=== PATIENT | female | born 1955 | race Caucasian/White ===

== ENCOUNTER → 2019-11-07 10:27 | Outpatient (BNVA) | payer OTHER, SELFPAY | PROVIDERS: Family Provider Nurse Practitioner Family; PCP Nurse Practitioner Family; Visit Provider Nurse Practitioner Family | DX: J02.9 Acute pharyngitis, unspecified (principal); M06.9 Rheumatoid arthritis, unspecified; J32.9 Chronic sinusitis, unspecified; E03.9 Hypothyroidism, unspecified; I10 Essential (primary) hypertension | CPT/HCPCS: 87071; 87880 ==

== ENCOUNTER → 2020-11-01 11:56 | Outpatient (BNVA) | payer BC, SELFPAY | PROVIDERS: Family Provider Nurse Practitioner Family; PCP Nurse Practitioner Family; Visit Provider Nurse Practitioner Family | DX: M25.50 Pain in unspecified joint (principal); W57.XXXA Bitten or stung by nonvenomous insect and other nonvenomous arthropods, initial encounter; R53.83 Other fatigue; L03.90 Cellulitis, unspecified; S80.862A Insect bite (nonvenomous), left lower leg, initial encounter; I10 Essential (primary) hypertension | CPT/HCPCS: 85025; 85651; 86618; 86666; 86757 ==

== ENCOUNTER 2021-01-01 14:11 | Outpatient (CLI) | payer BC, SELFPAY ==
--- NOTE | 2021-01-01 14:30 | USCV_ITS ---
Delfina Haskins Age: 65 Gender: F : 1955 Exam Date: 01/01/2021 14:55 Ordering Phys: Messi Enriquez MD Technologist: Cheryl Elliott Exam Location: [facility] [place] Indication: LLE PAIN AND SWELLING HISTORY: Lower extremity pain. Lower extremity swelling. PROCEDURES: Venous duplex imaging was performed in only the left lower extremity. The following venous structures were evaluated: common femoral vein, profunda vein, proximal portion of the greater saphenous vein, superficial femoral vein, and the popliteal vein. In addition, the posterior tibial and peroneal trunk were evaluated. Serial compression, augmentation maneuvers, and spectral Doppler flow evaluation were performed. FINDINGS: Normal 2-D Doppler and augmentation and compressibility throughout the lower extremity venous structures. Additional imaging through the proximal calf veins also reveals no thrombus. Limited evaluation of the greater saphenous vein is patent with no thrombus. Left LSV compressible 2.8cm from the junction with femoral vein, non-compressible LSVat prox-mid. CONCLUSIONS No DVT left lower extremity. Acute LSV thrombus distal to the common femoral vein junction. Dr. Kady Delaney DO (Electronically Signed) Final Date: 01 January 2021 15:06 S
== END 2021-01-01 14:12 | disposition home or self-care (01) ==
LOC: RAD 14:20
PROVIDERS: PCP Family Medicine; Visit Provider Family Medicine
DX: M79.89 Other specified soft tissue disorders (principal); M79.605 Pain in left leg
CPT/HCPCS: 93971

== ENCOUNTER 2021-08-19 15:42 | Emergency (ER) | payer MEDICARE, SELFPAY ==
[2021-08-19 15:59] VITALS: BP 165/96; PULSE 74; RESP 16; TEMP 36.9; O2SAT 97; BMI 35.3
--- NOTE | 2021-08-19 17:07 | ED_ITS ---
HPI - General Adult General: Chief complaint: Ear Stated complaint: right side jaw and throat pain Time Seen by Provider: 08/19/21 17:00 Source: patient Mode of arrival: ambulatory Limitations: no limitations History of Present Illness: 66-year-old female who presents to the emergency room with complaints of right ear pain. She also notes little droop on the corner of her mouth and at times when she is drinking liquids or even saliva will seem to drill out the corner of the mouth on the right. She is not noticed any other symptoms. No change in vision no difficulty with gait or coordination. She has no chest pain. She has a history of hypertension and currently is taking lisinopril and it was recently increased. Onset (ago): day(s) Location: head and face Radiation: non-radiation Severity: mild Pain Consistency: intermittent Relieving factors: none Exacerbating factors: none Associated symptoms: Deny chest pain, confusion, cough, diaphoresis, decreased appetite, dyspnea, fevers/chills, headache(s), malaise, nausea, rash, palpitations, seizures, short of breath, syncope, vomiting or weakness Treatments prior to arrival: none Review of Systems Const: Denies: malaise or diaphoresis ENMT: Denies: throat pain, ear or mastoid pain, nasal discharge or nasal congestion Card: Denies: chest pain, palpitations or syncope Resp: Denies: dyspnea GI: Denies: nausea or vomiting : Denies: flank pain, difficulty voiding, dysuria, urinary frequency or urinary urgency Skin/Breast: Denies: rash Neuro: Denies: headache(s) or confusion [facility] ED PFSH: Medical History HTN (hypertension) Hypothyroidism Rheumatoid arthritis Social History Smoking and tobacco status: never smoked Physical Exam Const: COMMON NORMALS: no acute distress GENERAL APPEARANCE: cooperative and comfortable ORIENTATION/CONSCIOUSNESS: Yes awake, Yes oriented to person, Yes oriented to place and Yes oriented to time HENMT: COMMON NORMALS: normocephalic, atraumatic, hearing grossly normal bilaterally, external ears normal, EAC's normal, TM's normal bilaterally, Normal nasal mucous membranes and turbinates present, moist oral mucous membranes and oropharynx normal HEAD & SCALP: normocephalic and atraumatic NOSE: Normal nasal mucous membranes and turbinates present EXTERNAL EAR: Yes external ears normal EXTERNAL AUDITORY CANAL: EAC's normal TYMPANIC MEMBRANE: TM's normal bilaterally Eye: COMMON NORMALS: Equal, round and reactive pupils present, EOMs intact bilaterally, conjunctivae normal and no scleral icterus CONJUNCTIVA: Yes conjunctivae normal PUPIL: Yes Equal, round and reactive pupils present Neck/C-Spine: COMMON NORMALS: full ROM, no lymphadenopathy, supple and no JVD Resp: COMMON NORMALS: normal respiratory effort, No retractions, No use of accessory muscles and clear to auscultation bilaterally AUSCULTATION: clear to auscultation bilaterally Cardio: COMMON NORMALS: no JVD, regular rate, regular rhythm and No murmurs present (Cardio) RATE: regular rate RHYTHM: regular rhythm Extremity: COMMON NORMALS: normal to inspection, capillary refill normal, no clubbing, cyanosis or edema, no calf tenderness and no pedal edema Neuro: SENSORIUM/ORIENTATION: Yes oriented to person, Yes oriented to place and Yes oriented to time COORDINATION/BALANCE: [id number] test normal COORDINATION: [id number] test normal Skin: COMMON NORMALS: no rashes or lesions noted GENERAL SKIN EXAM: no rashes or lesions noted Course Vital Signs: Vital signs: Vital Signs Temperature 98.4 F 08/19/21 15:59 Pulse Rate 74 08/19/21 15:59 Respiratory Rate 16 08/19/21 15:59 Blood Pressure 165/96 08/19/21 15:59 Pulse Oximetry 97 08/19/21 15:59 [facility] - General Adult Medical Decision Making Patient symptom presentation is that of initial ear pain and now very slight lower facial droop only involving the corner of the mouth. She has noticed a little dribbling there. She not had any watering from the eye and there is no droop at the eye with the upper portion of the face. Her blood pressure has been elevated showed me several readings from the last couple of days at home that were markedly elevated some approaching 200 on the systolic. She is elevated here as well. She has no other deficits. 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 Going to start her on prednisone. Additionally with her blood pressure elevated we are going add amlodipine. Patient states there are outpatient work-up testing scheduled I would recommend she complete those as planned. Return if she has further problems. Medical Records I reviewed the patient's medical records. Lab Data I reviewed the patient's lab results. Discharge Plan Discharge Patient Disposition: Home Clinical Impression: Mcclain's palsy, HTN (hypertension) Condition: Stable Prescriptions: New prednisone 20 mg tablet 20 mg PO TID Qty: 15 0RF amlodipine 5 mg tablet 5 mg PO DAILY Qty: 30 0RF No Action meclizine 25 mg tablet 25 mg PO BID Qty: 20 0RF lisinopril 10 mg tablet 10 mg PO .COMPLEX Qty: 90 1RF Rx Instructions: Take 2 tabs in am and 1 tab in evening levothyroxine 112 mcg capsule 112 mcg PO DAILY Qty: 90 1RF Discharge Orders: Discharge ED (Routine); Ordered 08/19/21 Ordered By: Hu Ochoa Referrals: Messi Enriquez MD [Primary Care Provider] - Discharge Diet: Usual diet Discharge Activity: Increase activity as tolerated Patient Instructions: Opioid Safety Activity Restrictions/Additional Instructions: Check your primary care doctor within the next 5 to 7 days to reevaluate your blood pressure Coding Level of Care Code ED Psychologist Private [facility] for [facility] Fwd NIH stroke score NIHSS Level Of Consciousness - 1a: 0 Level Of Consciousness Questions - 1b: Both Correct Level Of Consciousness Commands - 1c: Both Correct Best Gaze - 2: Normal Visual Bower - 3: No Visual Loss Facial Palsy - 4: Minor Paralysis Motor Arm Right - 5: No Drift Motor Arm Left - 5: No Drift Motor Leg Right - 6: No Drift Motor Leg Left - 6: No Drift Limb Ataxia - 7: Absent Sensory - 8: Normal Best Language - 9: No Aphasia Dysarthia - 10: Normal Extinction And Inattention - 11: 0 Score Total Score: 1
== END 2021-08-19 17:29 | disposition home or self-care (01) ==
PROVIDERS: Emergency Provider Family Medicine; PCP Family Medicine
DX: G51.0 Bell's palsy (principal); I10 Essential (primary) hypertension; E03.9 Hypothyroidism, unspecified
CPT/HCPCS: 99281

== ENCOUNTER 2022-01-28 08:28 | Outpatient (CLI) | payer MEDICARE, SELFPAY ==
--- NOTE | 2022-01-28 09:30 | CT_ITS ---
WS: [id number] CT ABDOMEN WITH CONTRAST HISTORY: R16.0 - Hepatomegaly, not elsewhere classified chronic RIGHT upper quadrant pain. Contiguous 2 phase 5 mm axial imaging performed through the abdomen. Oral contrast has been provided. Coronal and sagittal reformats are submitted. All CT scans at [facility] use at least one of these dose optimization techniques: automated exposure control; mA and/or kV adjustment per patient size (includes targeted exams where dose is matched to clinical indication); or iterative reconstruct ion. CONTRAST: Omnipaque 350; 95 mL IV. DLP: 1328.16 mGy.cm COMPARISON: None available. Lower thorax: Focal scar or atelectasis LEFT lung base. Normal size heart. Small hiatal hernia. Liver: Liver is top normal size. No mass or bile duct dilatation. Normal portal vein. Gallbladder: Not identified. Possible post surgical removal. Patient did not provide a history of a c holecystectomy. Pancreas: Normal. Spleen: Normal. Adrenals: Normal. Right kidney: Normal. Left kidney: Normal. Aorta: 2 GI tract: As visualized are normal. Normal distention of the stomach. No small bowel obstruction. No adenopathy or free fluid. Abdominal wall: No hernia. Visualized osseous structures: L4 anterolisthesis by [address]/CT abdomen w con* [id number] IMPRESSION: 1. Normal size liver. No mass or bile duct dilatation. 2. Gallbladder not identified. Patient did not provide a history of a prior ch olecystectomy. Suspect surgical removal. 3. No adenopathy or ascites.
[2022-01-28] MEDS: barium sulfate 450 mL Oral Susp PO (09:48)
[2022-01-28 09:49] LABS: Blood Urea Nitrogen 13 mg/dL (8-23)
[2022-01-28] MEDS: iohexol 350 mg/mL 100 mL Btl IV (09:56)
== END 2022-01-28 08:29 | disposition home or self-care (01) ==
PROVIDERS: Radiology Neuroradiology; PCP Family Medicine; Visit Provider Nurse Practitioner Family
DX: K52.9 Noninfective gastroenteritis and colitis, unspecified (principal); K57.92 Diverticulitis of intestine, part unspecified, without perforation or abscess without bleeding; R16.0 Hepatomegaly, not elsewhere classified
CPT/HCPCS: 74160; 82565; 84520

== ENCOUNTER 2022-03-19 16:13 | Outpatient (CLI) | payer MEDICARE, SELFPAY | END 2022-03-19 16:14 | disposition home or self-care (01) | PROVIDERS: PCP Family Medicine; Visit Provider Nurse Practitioner Family | DX: E03.9 Hypothyroidism, unspecified (principal); M06.9 Rheumatoid arthritis, unspecified; I10 Essential (primary) hypertension | CPT/HCPCS: 36415; 99203 ==

== ENCOUNTER 2022-03-26 08:03 | Outpatient (CLI) | payer MEDICARE, SELFPAY ==
--- NOTE | 2022-03-26 08:00 | FL_ITS ---
WS: [id number] Modified barium swallow, 03/26/2022 Clinical Data: Difficulty swallowing Comparison: None. Fluoroscopy time: 2min [id number] # of spot films: 1 Findings: The patient showed normal oral propulsion of ingested material. There is minimal residue in the hypop harynx which didn't clear. There is no penetration or aspiration. There is a functional pharynx. The variant tablet held normally from the oral cavity through the pharynx into the esophagus and stomach. FL/FL barium swallow modifd [id number] Impression: Normal modified barium swallow.
== END 2022-03-26 08:04 | disposition home or self-care (01) ==
LOC: RAD 08:04
PROVIDERS: Family Provider Nurse Practitioner Family; PCP Family Medicine; Visit Provider Surgery
DX: R13.10 Dysphagia, unspecified (principal)
CPT/HCPCS: 74230; 92611

== ENCOUNTER 2022-04-06 06:35 | Day surgery (SDC) | payer MEDICARE, SELFPAY ==
[2022-04-02 12:21] VITALS: BMI 37.3
--- NOTE | 2022-04-06 05:55 | W.PM.OPSUD ---
Surgery/Procedure H&P Update DATE OF PROCEDURE: April 06, 2022 DATE H&P PERFORMED: 03/19/22 H&P UPDATE INFORMATION: I have reviewed H&P completed within last 30 days, I have examined patient prior to procedure and Changes to prior documentation as noted here (Normal modified barium swallow.) PRIMARY INDICATION FOR PROCEDURE: The same PLANNED PROCEDURE: Operation Date: 04/06/22 08:00 Proposed Procedures p EGD 50864,R13.10(Not Applicable) - Agus Driscoll MD
[2022-04-06 06:51] VITALS: BP 186/97; PULSE 75; RESP 16; TEMP 36.1; O2SAT 98
[2022-04-06] MEDS: sodium chloride 0.9% 1,000 ML 30 ML IV (07:11)
--- NOTE | 2022-04-06 08:02 | P.ANESASSM_ITS ---
Pre-Anesthetic Assessment Height/Weight: Height 1.5 m Weight 83.915 kg Temp Pulse Resp BP Pulse Ox O2 Del Method 97 F L 75 16 186/97 98 04/06/22 06:51 04/06/22 06:51 04/06/22 06:51 04/06/22 06:51 04/06/22 06:51 04/06/22 06:51 Preop Diagnosis: Dysphagia Operation Date: 04/06/22 08:00 Proposed Procedures p EGD 32593,R13.10(Not Applicable) - Agus Driscoll MD Familial anesthetic complications: PONV Was Beta Bran taken within 24 hours: N/A Was Clonidine taken within 24 hours: N/A Last intake: Intake Last Liquid Date 04/05/22 Last Liquid Time 20:00 Last Solid Date 04/05/22 Last Solid Time 18:30 Social No alcohol and No tobacco Exam alert, oriented x 3 and clear to auscultation bilaterally Airway Submandibular: within normal limits Cervical ROM: within normal limits Mallampati: Class II Dentition: full History/ROS No significant history except as noted Pulmonary None reported CV/HEM Hypertension None reported Hepatic None reported GI dysphagia Metabolic Thyroid Disease [facility] [place] None reported Neuropsych None reported Anesthetic Plan ASA status: 2 Anesthesia: Anesthesia Evaluation and MAC Risk of > 500 ml blood loss (7ml/kg in children): No Medications/Allergies Home Medications Medication Instructions Recorded Confirmed Last Taken Type metoclopramide HCl 10 mg tablet 10 mg PO TID PRN nausea #20 tabs 01/01/22 04/02/22 04/02/22 Rx (Reglan) losartan 100 mg tablet 100 mg PO DAILY #30 tabs 03/05/22 04/06/22 04/05/22 Rx levothyroxine 125 mcg tablet 125 mcg PO DAILY 04/02/22 04/06/22 04/06/22 History Allergies Allergy/AdvReac Type Severity Reaction Status Date / Time acetaminophen [From Percocet] Allergy Unknown Verified 04/02/22 12:16 amoxicillin [From Augmentin] Allergy Unknown Verified 04/02/22 12:16 clavulanic acid Allergy Unknown Verified 04/02/22 12:16 [From Augmentin] oxycodone [From Percocet] Allergy Unknown Verified 04/02/22 12:16 Penicillins Allergy Unknown Verified 04/02/22 12:16 Current Medications Generic Name Dose Route Start Last Admin Trade Name Freq PRN Reason Stop Dose Admin Sodium Chloride 1,000 mls @ 30 mls/hr 04/06/22 06:45 04/06/22 07:11 Sodium Chloride 0.9% IV 04/07/22 06:44 30 mls/hr .Q24H SARAH Administration PFSH Anesthesia Medical History History of breast cancer Diagnosed in 2000. HTN (hypertension) Hypothyroidism Rheumatoid arthritis Surgical History H/O right mastectomy History of section x 2 History of cholecystectomy S/P removal of thyroid nodule Non-cancerous Social History Smoking and tobacco status: never smoked Data Anesthesia Cardiac Studies: No Data to Display
[2022-04-06 08:30] VITALS: BP 126/81; PULSE 94; RESP 16; TEMP 36.1; O2SAT 93
[2022-04-06 08:40] VITALS: BP 104/62; PULSE 79; RESP 16; O2SAT 95
--- NOTE | 2022-04-06 09:17 | ANE.PACU2 ---
Inpatient post-anesthesia follow up: Airway intact: Yes Vital signs: Temperature 97.0 F Pulse Rate 79 Respiratory Rate 16 Blood Pressure 104/62 Pulse Oximetry 95 Oxygen Delivery Me thod Room Air Oxygen Flow Rate Fraction of Inspir ed Oxygen Hydration adequate: Yes Nausea and vomiting: No Pain level: 0 Mental status: Baseline
== END 2022-04-06 09:04 | disposition home or self-care (01) ==
PROVIDERS: Family Provider Nurse Practitioner Family; PCP Family Medicine; Visit Provider Surgery
PROC: 0DJ08ZZ Inspection of Upper Intestinal Tract, Via Natural or Artificial Opening Endoscopic (ICD-10-PCS; CPT 43235; principal; 2022-04-06 08:00)
DX: R13.10 Dysphagia, unspecified (principal); I85.00 Esophageal varices without bleeding; K21.00 Gastro-esophageal reflux disease with esophagitis, without bleeding; K44.9 Diaphragmatic hernia without obstruction or gangrene; K29.80 Duodenitis without bleeding; K29.70 Gastritis, unspecified, without bleeding; B96.81 Helicobacter pylori [H. pylori] as the cause of diseases classified elsewhere; I10 Essential (primary) hypertension; Z85.3 Personal history of malignant neoplasm of breast; E03.9 Hypothyroidism, unspecified; M06.9 Rheumatoid arthritis, unspecified
CPT/HCPCS: 43239; 88305; 88342; J2704; J7030

== ENCOUNTER → 2022-04-15 07:46 | Outpatient (BNVA) | payer MEDICARE, SELFPAY | PROVIDERS: Family Provider Nurse Practitioner Family; PCP Nurse Practitioner Family; Visit Provider Surgery | DX: Z09 Encounter for follow-up examination after completed treatment for conditions other than malignant neoplasm (principal); K20.90 Esophagitis, unspecified without bleeding; I85.00 Esophageal varices without bleeding; K29.90 Gastroduodenitis, unspecified, without bleeding | CPT/HCPCS: 99213 ==

== ENCOUNTER 2022-04-21 07:36 | Outpatient (CLI) | payer MEDICARE, SELFPAY ==
--- NOTE | 2022-04-21 | ECG_ITS ---
[facility] Test Date: 2022-04-21 Pat Name: Delfina Haskins Department: Room: Gender: Female Disability Representative: Omayra Benavides : 1955 Requested By: Messi Pang Order Number: [id number] MD: Heath iMller M.D. Interpretive Statements NAME OF STUDY: LEXISCAN SESTAMIBI STRESS TEST INDICATION: [Chest Pain, ] Procedure: At the baseline, the blood pressure was 146/82 mmHg with a heart rate of 77 bpm. The electrocardiogram showed normal sinus rhythm, normal axis with normal ST and T's and occasional PVCs. The Lexiscan was infused over a period of 20 seconds. A total of 0.4 mg of Lexiscan was infused. The stress phase was continued for a total of 5 minutes. Heart rate was at the end of stress phase was 86 bpm and a blood pressure of 143/93 mmHg. The EKG at the peak infusion revealed normal sinus rhythm with no significant ST-T wave changes. Sestamibi was injected 20 seconds after the Lexiscan infusion. Blood pressure at the end of recovery phase was 143/92 mmHg with a heart rate of 86 bpm. Conclusion: 1. Normal EKG response to Lexiscan infusion 2. No Lexiscan induced chest pain or cardiac arrhythmia. 3. Normal blood pressure and heart rate response. 4. Sestamibi/sestamibi perfusion scan pending; see separate report. Electronically Signed On 05-10-2022 13:20:57 CORRECTIONAL MAINTENANCE TECHNICIAN by Heath Miller M.D. [id number]
--- NOTE | 2022-04-21 07:59 | NMCV_ITS ---
NM kevin perf SPECT r/s* [id number] Delfina Haskins Age: 67 Gender: F : 1955 Exam Date: 04/21/2022 08:54 Ordering Phys: Messi Enriquez MD Technologist: MICHAEL Saenz Exam Location: [facility] Indications: CHEST PAIN STRESS TEST Please see separate stress test report in [employer] for full findings IMAGE PROTOCOL Rest/Stress 1 Lexiscan Day Radiopharmaceutical Dose (mCi) Administration Site Administered by Rest: Tc-99m 10.7 IV MICHAEL Garcia Sestamibi Stress:Tc-99m 32.4 IV MICHAEL Garcia Sestamibi Rest: 21-Apr-2022 60 Discovery 630 Stress: 21-Apr-2022 30 Discovery 630 0.4mg Lexiscan. Images obtained in supine and prone position. SPECT RESULTS Technical Quality: Excellent Raw Data Analysis: Normal Image Corrections: No attenuation or motion correction applied Summed Stress Score: 9 Summed Rest Score: 0 Summed Difference Score: 9 PERFUSION FINDINGS There is a large in size, reversible perfusion defect noted in inferolateral and anterolateral meraz. This is consistent with large area of ischemia in the left circumflex artery territory. FUNCTIONAL RESULTS (calculated via Gated SPECT) Stress Image LV EF (%): 73 Stress EDV (mL):97 TID: 0.92 Stress ESV (mL):26 FUNCTIONAL FINDINGS: There is normal left ventricular systolic function. IMPRESSIONS 1. Abnormal myocardial perfusion imaging with large area of ischemia noted in left circumflex artery territory. 2. LV systolic function is normal Heath Miller MD (Electronically Signed) Final Date: 21 April 2022 10:44 S
[2022-04-21] MEDS: regadenoson 0.4 Mg/5 ml Syringe IVP (09:25)
[2022-04-21] MEDS: ondansetron 2 mg/ML SDV 2 mL 4 MG IVP (09:28)
[2022-04-21 09:45] VITALS: BP 143/92; PULSE 83
== END 2022-04-21 07:37 | disposition home or self-care (01) ==
PROVIDERS: PCP Family Medicine; Visit Provider Family Medicine
DX: R07.9 Chest pain, unspecified (principal); R06.02 Shortness of breath
CPT/HCPCS: 36415; 78452; 93017; 96374; 96375; A9500; J2405; J2785

== ENCOUNTER → 2022-04-27 13:00 | Outpatient (BNVA) | payer MEDICARE, SELFPAY | PROVIDERS: PCP Family Medicine; Visit Provider Internal Medicine | DX: R07.9 Chest pain, unspecified (principal); R94.39 Abnormal result of other cardiovascular function study; M06.9 Rheumatoid arthritis, unspecified; I10 Essential (primary) hypertension | CPT/HCPCS: 99204 ==

== ENCOUNTER 2022-04-30 05:35 | Outpatient (CLI) | payer MEDICARE, SELFPAY ==
[2022-04-30] VITALS (16 sets, daily range): BP systolic 131–156; BP diastolic 79–100; PULSE 81–91; RESP 13–18; TEMP 36.8; O2SAT 92–97; BMI 38.7
--- NOTE | 2022-04-30 06:00 | XACV_ITS ---
Exam Room: 2 Ht: 150 cm Wt: 87 kg BSA: 1.95 m2 Gender: Female : 1955 Any Known Allergies: Other Exam Priority: Routine Procedure(s): Procedure Description: Diagnostic procedure Procedure Description: Coronary Angiography Diagnostic Cath Status: Elective Diagnostic Findings * Left Main has no significant disease. * Mid Left Anterior Descending: severe 90% stenosis, SABAS: 3 flow. Large sized second diagonal artery has a proximal 90% stenosis.. * Left circumflex artery is totally occluded in proximal to midportion after giving rise to * AV groove * circumflex artery. * Weak collaterals are seen * from left and right system * supplying the OM branches.. * Right PL: ostial significant 80% stenosis, SABAS: 3 flow. * Posterior Descending Right: ostial significant 80% stenosis, SABAS: 3 flow. * INDICATION: 67-year-old woman with past medical history of hypertension, history of breast cancer s/p mastectomy on the right side and radiation therapy, rheumatoid arthritis, significant family history of CAD has been referred for evaluation of chest pain and abnormal stress test. According to patient for the last 1 year she has been noticing on and off pain in the back between the scapula that radiates to the front and to the chest. It is both exertional and nonexertional. Stress test showed large area of ischemia in left circumflex artery territory.. * Distal Left Anterior Descending: critical 95% stenosis, SABAS: 3 flow. * Coronary angiography shows right dominance. Conclusions 1. Severe multivessel coronary artery disease.. Recommendations * Patient will need coronary artery bypass surgery secondary to multivessel disease. I have spoken with CT surgeon Dr. Whitfield at [facility] who will arrange for outpatient visit next week and surgery soon after. * ER warning signs and symptoms discussed in detail with the patient. Sublingual nitroglycerin sent to the pharmacy. Patient advised to continue taking aspirin. * Outpatient cardiology follow-up in 1 to 2 weeks. Interventional RX Recommendation: CABG Diagnostic RX Recommendation: CABG Anticoagulation: Heparin Pressures Phase:Rest AO : 120 / 85 ( 103 ) @ 7:56:00 AM 111 / 79 ( 96 ) @ 7:59:00 AM Clinical Evaluation EBL: 5mL-10mL Procedural Details Procedure Consent Obtained. Pre-Procedure Time Out. Identified patient by full name and date of as verbalized by the patient/guarantor. Does the consent match the physician's order: Yes. Accurate & Complete Informed Consent: Yes. Inpatient/Outpatient History & Physical on Chart: Yes. If H&P is completed, is and addenduem needed: No. Visualize and Verify Site with Patient/Guarantor: N/A. Relevant Radiology Images available: Yes. Equipment: 6F - Radial. Cardiac Cath Pack. ACIST Manifold Kit Model BT 2000. Heparinized Saline (2 units/mL), 1000 mL bag. 0.035 260cm Exchange J wire. Patient's family will be in CPRU room #3. Dr Miller will update at the completion of the procedure. IV Site on Arrival: 20 gauge in the left anticubital. IV Fluids: 0.9% NaCl at KVO. 0 mL infused prior to oil field laborer. Pre Procedural Pulses: bilateral dorsalis pedis was 2+. Pre Procedural Pulses: bilateral posterior tibial was Doppled. Pre Procedural Pulses: bilateral radial was 3+. [facility] Clinical Fraility Score: 3: Managing Well. Bow Maker Gift Wrapping Indications: New Onset Angina/Abnormal stress test. Chest Pain Symptom Assessment: Typical Angina Symptoms. Cardiovascular Instability: No. The risks, benefits, and alternatives of sedation and/or procedure were discussed by physician. The patient agrees to continue. Procedure started. Correct patient, site and procedure confirmed by cath team. PERRLA. Strong, equal hand extrusion supervisor bilaterally. Lungs clear x 5 lobes. Oxygen started at 2liters/min via nasal canula. right groin was prepped with chloroprep then draped in the usual sterile fashion. right radial was prepped with chloroprep then draped in the usual sterile fashion. Physician notified. Physician arrived. Baseline sample Acquired. HR: 85 BPM. Physician scrubbed in. Immediate Pre-Procedure Time Out. Correct Patient: Yes; Correct Procedure: Yes; Correct Site: Yes; Correct Patient Position: Yes; Correct Supplies: Yes; Dried Flammable Prep: Yes; Blood Products Available: N/A;. Lidocaine 1% infiltrated to the right radial. Arterial access obtained. A 5 montenegrin TIG catheter in over the exchange J wire. Multiple views taken of left coronary artery. Catheter redirected to the RCA. Multiple views taken of right coronary artery. Catheter removed over the exchange J wire. A 5 montenegrin Angled Pig catheter in over an exchange J wire, unable to cross. Dr. Miller reviewing cineogrpahy. Dr Miller scrubbed out. A TR Band was successful obtaining hemostatsis at the Right Radial artery insertion site. TR band placed. Hemostasis obtained. Post Procedure: Pulses reassessed and unchanged. PERRLA. Strong, equal hand extrusion supervisor bilaterally. No VTE prophylaxis required. Medication's Wasted: Nitro = 49.8 mg. Medication's Wasted: Heparin = 1000 units. Total IV fluids: 55 mL. Post-op diagnosis: Severe 3V disease. Complications: none. Estimated blood loss: 5mL-10mL. Responsiveness - Normal response to verbal stimuli; alert and oriented, PERRLA. Airway - Unaffected, no intervention required; spontaneous ventilation. Circulation: W/N/L, pulses unchanged. Nausea/Vomiting: No. Procedure completed. Patient transferred by wheelchair to CPRU. Vital chart was stopped. Catheter removed over the exchange J wire. Access Site Site: Right Radial artery Sheath Size: 6 Fr Hemostasis Method: TR Band Hemostasis Success: Successful Procedure Medications Start: 7:48 AM Stop: 7:48 AM Medication: Versed Amount: 1 mg Route: I.V. Start: 7:49 AM Stop: 7:49 AM Medication: Fentanyl Amount: 50 mcg Route: I.V. Start: 7:52 AM Stop: 7:52 AM Medication: Versed Amount: 1 mg Route: I.V. Start: 7:54 AM Stop: 7:54 AM Medication: Nitrogylcerin Amount: 200 mcg Route: I.A. Start: 7:56 AM Stop: 7:56 AM Medication: Heparin Amount: 5000 units Route: I.V. Start: 8:04 AM Stop: 8:04 AM Medication: Fentanyl Amount: 50 mcg Route: I.V. I, the attending physician, have reviewed and verified all procedure medications. Yes, all medications given per verbal order History/Risk Factors Hypertension: Yes Dyslipidemia: No Peripheral Arterial Disease (PAD): No Myocardial Infarction (NH): No Obesity: Yes Renal Disease: No Tobacco Use: Never Prior Interventions PCI: No CABG: No Valve Surgery: No Report Signatures Finalized by Heath Miller MD on 04/30/2022 01:46 PM
[2022-04-30 06:33] LABS: Basophils # 0.1 10^3/uL (0.0-0.1); Basophils % 1.1 %; Eosinophils # 0.1 10^3/uL (0.0-0.8); Eosinophils % 1.5 %; Hematocrit 39.1 % (37.0-47.0); Hemoglobin 12.9 g/dL (11.5-15.3); Lymphocytes % 12.2 %; Mean Corpuscular Hemoglobin 30.1 pg (28.0-34.0); Mean Corpuscular Volume 91.4 fl (81-99); Mean Platelet Volume 9.7 fL (7.4-10.4); Monocytes # 0.6 10^3/uL (0.2-0.9); Monocytes % 6.7 %; Neutrophils # 6.42 10^3/uL (1.8-7.7); Neutrophils % 78.3 %; Nucleated Red Blood Cells % 0 %; Platelet Count 308 10^3/cmm (130-400); Red Blood Count 4.28 10^6/uL (4.1-5.3); Red Cell Distribution Width 12.9 % (12.1-15.1); White Blood Count 8.2 10^3/uL (4.0-10.0)
[2022-04-30 06:50] LABS: INR 1.01 (0.8-1.2)
[2022-04-30 06:55] LABS: Blood Urea Nitrogen 18 mg/dL (8-23); Calcium 9.4 mg/dL (8.5-10.5); Carbon Dioxide 25 mmol/L (22-29); Chloride 98 mmol/L (98-107); Glomerular Filtration Rate 83.7 mL/min (90-130); Glucose 116 mg/dL (65-115); Osmolality Calculated 279 mOsm/kg (285-295); Sodium 133 mmol/L (136-145)
[2022-04-30] MEDS: diphenhydrAMINE 50 mg Capsule PO (06:56)
--- NOTE | 2022-04-30 07:45 | W.PM.OPSUD ---
Surgery/Procedure H&P Update DATE OF PROCEDURE: April 30, 2022 DATE H&P PERFORMED: 04/27/22 H&P UPDATE INFORMATION: I have reviewed H&P completed within last 30 days, I have examined patient prior to procedure and No changes to prior documentation PREOP DIAGNOSIS: Worsening angina/ abnormal stress test PRIMARY INDICATION FOR PROCEDURE: Worsening angina/ abnormal stress test PLANNED PROCEDURE: Operation Date: 04/30/22 07:00 Proposed Procedures p Left Heart Cath 30331,R94.39,R07.9(Left) - Heath Miller M.D Possible percutaneous coronary intervention PATIENT REASSESSED PRIOR TO SEDATION, WITH NO CHANGE NOTED: Yes PHYSICAL EXAM: alert, oriented x 3, clear to auscultation bilaterally and regular rate & rhythm AIRWAY EVAL/ANESTHESIA PLAN: ASA III, Local Anesthesia, Risks, benefits & alternatives of sedation and/or procedure discussed and Patient agrees to continue as planned ADDITIONAL INFORMATION: Moderate sedation
--- NOTE | 2022-04-30 08:20 | PC.NURSE ---
received pt from prosthetics lab technician post left heart cath. tr band on right wrist with no hematoma or bruising noted. pt complains of no pain. pt sleepy but able to wake if prompted. pt and family educated on restrictions of right wrist and nurse will re-educate throughout recovery. pt on monitor and will be monitored per protocol.
--- NOTE | 2022-04-30 09:05 | USCV_ITS ---
Delfina Haskins Age: 67 Gender: F : 1955 Exam Date: 04/30/2022 09:48 Ordering Phys: Heath Miller M.D ([email or web address]) Technologist: Jhony Cespedes [place] [facility] [place]: POST CATH BP: 153 / 98 HR: 87 Rhythm: Sinus Technical Quality: Adequate MEASUREMENTS (Male / Female) Normal Values 2D ECHO LV Diastolic Diameter PLAX 3.7 cm 4.2 - 5.9 / 3.9 - 5.3 cm LV Systolic Diameter PLAX 2.4 cm IVS Diastolic Thickness 1.2 cm 0.6 - 1.0 / 0.6 - 0.9 cm IVS Systolic Thickness 1.3 cm LVPW Diastolic Thickness 1.1 cm 0.6 - 1.0 / 0.6 - 0.9 cm LVPW Systolic Thickness 1.3 cm LVOT Diameter 2.1 cm LV Ejection Fraction 2D Teich 65.9 % LV Ejection Fraction MOD 2C 58.1 % LV Ejection Fraction 2C AL 59.0 % LA Diameter 3.4 cm IVC Diameter 1.5 cm M-MODE RV Diastolic Diameter MM 2.3 cm Aortic Annulus Diameter 3.3 cm LA Ao Ratio MM 1.1 MV E Point Septal Separation 1.0 cm DOPPLER AV Peak Velocity 124.0 cm/s LVOT Peak Velocity 88.0 cm/s AV Area Cont Eq vti 2.6 cm squared AV Area Cont Eq pk 2.4 cm squared MV Area PHT 5.8 cm squared Mitral E to A Ratio 0.9 MV E' Velocity 87.0 cm/s Mitral E to LV E' Septal Ratio 10.3 TR Peak Velocity 119.3 cm/s TR Peak Gradient 5.7 mmHg TV Peak E Velocity 72.0 cm/s Right Atrial Pressure 3.0 mmHg Pulmonary Artery Systolic Pressu 8.7 mmHg RV Acceleration Time 0.1 s FINDINGS Left Ventricle Left ventricle is normal in size. LV systolic function is normal with EF 55 to 60%. No regional wall motion abnormalities seen. Grade 1 diastolic dysfunction Right Ventricle Normal in size and function Right Atrium Normal in size Left Atrium Normal in size Mitral Valve Structurally normal mitral valve.Trace mitral regurgitation. Aortic Valve Structurally normal aortic valve.No significant stenosis or regurgitation Tricuspid Valve Trace tricuspid regurgitation. Insufficient TR jet to calculate RVSP Pulmonic Valve Not well visualized Pericardium Normal Aorta Normal in size IVC Appears to be normal. RA pressure is 0-5mmHg CONCLUSIONS LV systolic function is normal with EF of 55 to 60%. Grade 1 diastolic dysfunction Trace mitral regurgitation Trace tricuspid regurgitation. No comparison studies are available Heath Miller MD (Electronically Signed) Final Date: 01 May 2022 15:47 S
--- NOTE | 2022-04-30 10:38 | PC.NURSE ---
DVD given to daughter to take with them to the CV appt.
== END 2022-04-30 12:07 | disposition home or self-care (01) ==
PROVIDERS: PCP Family Medicine; Visit Provider Internal Medicine
DX: I25.10 Atherosclerotic heart disease of native coronary artery without angina pectoris (principal); I10 Essential (primary) hypertension; E66.9 Obesity, unspecified; Z68.38 Body mass index [BMI] 38.0-38.9, adult; Z85.3 Personal history of malignant neoplasm of breast; E03.9 Hypothyroidism, unspecified; M06.9 Rheumatoid arthritis, unspecified
CPT/HCPCS: 36415; 80048; 85025; 85610; 93306; 93454; 96361; 96365; 99152; 99153; C1769; C1887; C1894; J1644; J2250; J3010; J3490; J7030; Q0163; Q9967

== ENCOUNTER 2022-06-23 13:49 | Outpatient (RCR) | payer MEDICARE, SELFPAY | END 2022-07-14 23:59 | disposition home or self-care (01) | LOC: CR 13:49 | PROVIDERS: PCP Family Medicine; Referring Provider Internal Medicine; Visit Provider Internal Medicine | DX: Z95.1 Presence of aortocoronary bypass graft (principal) | CPT/HCPCS: 93798 ==

== ENCOUNTER → 2022-07-02 16:12 | Outpatient (BNVA) | payer MEDICARE, SELFPAY | PROVIDERS: PCP Family Medicine; Visit Provider Nurse Practitioner Family | DX: I25.10 Atherosclerotic heart disease of native coronary artery without angina pectoris (principal); I10 Essential (primary) hypertension; Z95.1 Presence of aortocoronary bypass graft | CPT/HCPCS: 99214 ==

== ENCOUNTER 2022-07-15 09:08 | Outpatient (RCR) | payer MEDICARE, SELFPAY | END 2022-08-14 23:59 | disposition home or self-care (01) | LOC: CR 09:08 | PROVIDERS: PCP Family Medicine; Referring Provider Internal Medicine; Visit Provider Internal Medicine | DX: Z95.1 Presence of aortocoronary bypass graft (principal) | CPT/HCPCS: 93798 ==

== ENCOUNTER 2022-08-17 10:06 | Outpatient (RCR) | payer MEDICARE, SELFPAY | END 2022-09-13 23:59 | disposition home or self-care (01) | LOC: CR 10:06 | PROVIDERS: PCP Family Medicine; Referring Provider Internal Medicine; Visit Provider Internal Medicine | DX: Z95.1 Presence of aortocoronary bypass graft (principal) | CPT/HCPCS: 93798 ==

== ENCOUNTER → 2022-08-27 13:17 | Outpatient (BNVA) | payer MEDICARE, SELFPAY | PROVIDERS: PCP Family Medicine; Visit Provider Nurse Practitioner Family | DX: I25.10 Atherosclerotic heart disease of native coronary artery without angina pectoris (principal); I10 Essential (primary) hypertension; Z95.1 Presence of aortocoronary bypass graft; Z79.82 Long term (current) use of aspirin | CPT/HCPCS: 99214 ==

== ENCOUNTER → 2022-12-09 16:22 | Outpatient (BNVA) | payer MEDICARE, SELFPAY | PROVIDERS: PCP Family Medicine; Visit Provider Nurse Practitioner Family | DX: M25.50 Pain in unspecified joint (principal) | CPT/HCPCS: 82550; 84550; 85025 ==

== ENCOUNTER → 2023-02-17 13:55 | Outpatient (BNVA) | payer MEDICARE, SELFPAY | PROVIDERS: PCP Family Medicine; Visit Provider Nurse Practitioner Family | DX: L57.0 Actinic keratosis (principal); D18.01 Hemangioma of skin and subcutaneous tissue; L82.1 Other seborrheic keratosis; L82.0 Inflamed seborrheic keratosis; L57.8 Other skin changes due to chronic exposure to nonionizing radiation | CPT/HCPCS: 17000; 17110; 99213 ==

== ENCOUNTER → 2023-02-25 12:51 | Outpatient (BNVA) | payer MEDICARE, SELFPAY | PROVIDERS: PCP Family Medicine; Visit Provider Internal Medicine | DX: I25.10 Atherosclerotic heart disease of native coronary artery without angina pectoris (principal); E78.5 Hyperlipidemia, unspecified; I10 Essential (primary) hypertension; Z95.1 Presence of aortocoronary bypass graft | CPT/HCPCS: 99214 ==

== ENCOUNTER → 2023-07-25 11:50 | Outpatient (BNVA) | payer MEDICARE, SELFPAY | PROVIDERS: PCP Family Medicine; Visit Provider Nurse Practitioner | DX: J02.9 Acute pharyngitis, unspecified (principal) | CPT/HCPCS: 87880 ==

== ENCOUNTER → 2023-10-27 13:27 | Outpatient (BNVA) | payer MEDICARE, SELFPAY | PROVIDERS: PCP Nurse Practitioner Family; Visit Provider Nurse Practitioner Family | DX: L57.0 Actinic keratosis (principal); L40.0 Psoriasis vulgaris; L40.59 Other psoriatic arthropathy | CPT/HCPCS: 17000; 99214 ==

== ENCOUNTER 2023-10-29 10:18 | Outpatient (CLI) | payer MEDICARE, SELFPAY ==
[2023-10-29 10:48] LABS: Basophils # 0.1 10^3/uL (0.0-0.1); Basophils % 1.3 %; Eosinophils # 0.1 10^3/uL (0.0-0.8); Eosinophils % 1.7 %; Hematocrit 41.2 % (36-47); Lymphocytes # 1.8 10^3/uL (0.8-4.8); Lymphocytes % 25.5 %; Mean Corpuscular HGB Conc 33.5 g/dL (30-55); Mean Corpuscular Hemoglobin 29.6 pg (27-33); Mean Corpuscular Volume 88.4 fl (85-98); Mean Platelet Volume 9.6 fL (7.4-10.4); Monocytes # 0.4 10^3/uL (0.2-0.9); Monocytes % 6.1 %; Neutrophils # 4.69 10^3/uL (1.8-7.7); Neutrophils % 65.1 %; Nucleated Red Blood Cells % 0 %; Platelet Count 366 10^3/cmm (157-399); Red Blood Count 4.66 10^6/uL (3.85-5.65); Red Cell Distribution Width 13.3 % (12.1-15.1); White Blood Count 7.19 10^3/uL (3.29-11.43)
[2023-10-29 11:13] LABS: Alanine Aminotransferase 19 U/L (0-33); Albumin Level 4.2 g/dL (3.5-5.2); Alkaline Phosphatase 79 U/L (35-105); Aspartate Amino Transferase 14 U/L (0-32); Globulin 3.1 g/dL (1.3-4.6); Total Bilirubin 0.4 mg/dL (0.15-1.2); Total Protein 7.3 g/dL (6.6-8.7)
[2023-10-29 11:24] LABS: Anion Gap 16.3 (5-19); Blood Urea Nitrogen 19 mg/dL (8-23); Calcium 9.4 mg/dL (8.5-10.5); Carbon Dioxide 25 mmol/L (22-29); Chloride 101 mmol/L (98-107); Free T4 Free Thyroxine 1.56 ng/dL (0.82-1.77); Glomerular Filtration Rate 83.5 mL/min (90-130); Glucose 103 mg/dL (65-115); Osmolality Calculated 289 mOsm/kg (285-295); Potassium 4.3 mmol/L (3.5-5.1); Sodium 138 mmol/L (136-145); T3 Free 2.3 PG/ML (2.0-4.4); Thyroid Stimulating Hormone 0.77 uIU/mL (0.27-4.20)
[2023-10-29 11:28] LABS: Hepatitis A Antibody IgM Non-Reactive (Nonreactive); Hepatitis B Core AB, Total Non-Reactive (Nonreactive); Hepatitis B Surface AB < 3.5 (11.5-1000); Hepatitis B Surface Antigen Non-Reactive (Nonreactive); Hepatitis C Virus Antibody Non-Reactive (Nonreactive)
[2023-11-02 15:39] LABS: Quantiferon Mitogen 9.28 IU/mL; Quantiferon Nil 0.02 IU/mL; Quantiferon TB Gold NEGATIVE (NEGATIVE)
== END 2023-10-29 10:19 | disposition home or self-care (01) ==
LOC: LAB 10:21
PROVIDERS: PCP Nurse Practitioner Family; Visit Provider Nurse Practitioner Family
DX: I10 Essential (primary) hypertension (principal); E03.9 Hypothyroidism, unspecified; L57.0 Actinic keratosis; L40.0 Psoriasis vulgaris; L40.59 Other psoriatic arthropathy
CPT/HCPCS: 80048; 80076; 84439; 84443; 84481; 85025; 86480; 86705; 86706; 86709; 86803; 87340

== ENCOUNTER → 2023-12-01 12:54 | Outpatient (BNVA) | payer MEDICARE, SELFPAY | PROVIDERS: PCP Nurse Practitioner Family; Visit Provider Internal Medicine | DX: I25.10 Atherosclerotic heart disease of native coronary artery without angina pectoris (principal); E78.5 Hyperlipidemia, unspecified; R00.2 Palpitations; I10 Essential (primary) hypertension | CPT/HCPCS: 99214 ==

== ENCOUNTER → 2023-12-01 14:17 | Outpatient (BNVA) | payer MEDICARE, SELFPAY | PROVIDERS: PCP Nurse Practitioner Family; Visit Provider Internal Medicine | DX: R00.2 Palpitations (principal); I47.10 Supraventricular tachycardia, unspecified; I49.1 Atrial premature depolarization; I49.3 Ventricular premature depolarization | CPT/HCPCS: 93242; 93296 ==

== ENCOUNTER 2023-12-10 10:30 | Outpatient (CLI) | payer MEDICARE, SELFPAY ==
[2023-12-10 11:09] LABS: Chol HDL Ratio 6.64 mg/dL (0.0-4.40); Cholesterol 299 mg/dL (0-200); HDL Cholesterol 45 mg/dL (60-100); LDL Cholesterol Calculated 219 mg/dL (50-129); LDL HDL Ratio 4.87 RATIO (0.00-3.22); Triglycerides 177 mg/dL (0-150)
== END 2023-12-10 10:31 | disposition home or self-care (01) ==
PROVIDERS: PCP Nurse Practitioner Family; Visit Provider Internal Medicine
DX: E78.5 Hyperlipidemia, unspecified (principal)
CPT/HCPCS: 36415; 80061

== ENCOUNTER 2023-12-29 11:59 | Outpatient (CLI) | payer MEDICARE, SELFPAY | END 2023-12-29 12:00 | disposition home or self-care (01) | LOC: SLEEP 12:09 | PROVIDERS: PCP Nurse Practitioner Family; Visit Provider Nurse Practitioner Family | DX: G47.33 Obstructive sleep apnea (adult) (pediatric) (principal) | CPT/HCPCS: 17000; 99214; G0399 ==

== ENCOUNTER → 2024-02-22 13:30 | Outpatient (BNVA) | payer MEDICARE, SELFPAY | PROVIDERS: PCP Nurse Practitioner Family; Visit Provider Nurse Practitioner Family | DX: L57.0 Actinic keratosis (principal); L40.59 Other psoriatic arthropathy; D18.01 Hemangioma of skin and subcutaneous tissue; L82.1 Other seborrheic keratosis; L81.4 Other melanin hyperpigmentation; L57.8 Other skin changes due to chronic exposure to nonionizing radiation; L40.0 Psoriasis vulgaris; I99.8 Other disorder of circulatory system; B07.0 Plantar wart; T50.905A Adverse effect of unspecified drugs, medicaments and biological substances, initial encounter; X58.XXXA Exposure to other specified factors, initial encounter | CPT/HCPCS: 17000; 17110; 99214 ==

== ENCOUNTER → 2024-03-09 15:00 | Outpatient (BNVA) | payer MEDICARE, SELFPAY | PROVIDERS: PCP Nurse Practitioner Family; Visit Provider Registered Nurse Neonatal Intensive Care | DX: J02.9 Acute pharyngitis, unspecified (principal) | CPT/HCPCS: 87880 ==

== ENCOUNTER → 2024-08-22 13:28 | Outpatient (BNVA) | payer MEDICARE, SELFPAY | PROVIDERS: PCP Family Medicine; Visit Provider Nurse Practitioner Family | DX: L40.59 Other psoriatic arthropathy (principal); L81.4 Other melanin hyperpigmentation; L57.8 Other skin changes due to chronic exposure to nonionizing radiation; L40.0 Psoriasis vulgaris; Z79.899 Other long term (current) drug therapy; I99.8 Other disorder of circulatory system; L98.8 Other specified disorders of the skin and subcutaneous tissue; L82.0 Inflamed seborrheic keratosis; Z78.9 Other specified health status; R58 Hemorrhage, not elsewhere classified; L53.8 Other specified erythematous conditions; L57.0 Actinic keratosis | CPT/HCPCS: 17000; 17110; 99214 ==

== ENCOUNTER → 2025-01-03 15:24 | Outpatient (BNVA) | payer MEDICARE, SELFPAY | PROVIDERS: PCP Family Medicine; Visit Provider Nurse Practitioner | DX: R35.0 Frequency of micturition (principal); R39.9 Unspecified symptoms and signs involving the genitourinary system | CPT/HCPCS: 81000; 87086 ==

== ENCOUNTER 2025-01-04 17:10 | Outpatient (CLI) | payer MEDICARE, SELFPAY ==
--- NOTE | 2025-01-04 17:28 | XRR_ITS ---
PROCEDURE INFORMATION: Exam: XR Abdomen Exam date and time: 01/04/2025 5:38 PM Age: 69 years old Clinical indication: Abdominal pain; Prior surgery; Surgery date: 6+ months; Surgery type: C-sections, open heart surgery; X3 days excruciating pain across belt line; Additional info: R10.9 - unspecified abdominal pain TECHNIQUE: Imaging protocol: Radiologic exam of the abdomen. Views: Frontal supine view of the abdomen. 1 View. COMPARISON: CT abdomen w con* [id number] 01/28/2022 9:51 AM FINDINGS: Gastrointestinal tract: Nonobstructive bowel gas pattern. No obvious bowel dilatation or pneumatosis. Bones/joints: [id number] bilateral SI joint sclerosis and multilevel lumbar spondylosis. Mild hip arthrosis. Multiple median sternotomy wires some of which are broken. XR/XR KUB [id number] IMPRESSION: Nonobstructive plain radiographic bowel gas pattern.
== END 2025-01-04 17:11 | disposition home or self-care (01) ==
PROVIDERS: PCP Family Medicine; Visit Provider Nurse Practitioner Family
DX: R10.9 Unspecified abdominal pain (principal); M16.10 Unilateral primary osteoarthritis, unspecified hip; M46.1 Sacroiliitis, not elsewhere classified
CPT/HCPCS: 74018

== ENCOUNTER → 2025-01-23 13:01 | Outpatient (BNVA) | payer MEDICARE, SELFPAY | PROVIDERS: PCP Family Medicine; Visit Provider Nurse Practitioner Family | DX: L40.59 Other psoriatic arthropathy (principal); L81.4 Other melanin hyperpigmentation; L57.8 Other skin changes due to chronic exposure to nonionizing radiation; L40.0 Psoriasis vulgaris; L57.0 Actinic keratosis | CPT/HCPCS: 17000; 99214 ==